=== PATIENT | female | born 1965 | race African-American/Black ===

== ENCOUNTER 2022-12-26 22:08 | Emergency (ER) | payer OTHER ==
[2022-12-26 22:15] VITALS: TEMP 97.1; BMI 33.3
[2022-12-26] MEDS ORDERED: FAMOTIDINE 20 MG/50 ML IVPB 20 MG/50 ML MG IVPB ONE ×2 (22:28→22:31)
[2022-12-26] MEDS ORDERED: ONDANSETRON 4 MG/2 ML VIAL IVPUSH ONE (22:28)
[2022-12-26] MEDS ORDERED: ACETAMINOPHEN 1000 MG/100 ML BAG IVPB ONE (22:28)
[2022-12-26] MEDS ORDERED: ONDANSETRON 4 MG/2 ML VIAL ONE (22:31)
[2022-12-26] MEDS ORDERED: ACETAMINOPHEN INJECTION 100 ML IVPB ONE (22:31)
[2022-12-26 22:45] LABS: BASO % 0.7 % (0-2.0); EOS % 2.1 % (0-4.5); HEMATOCRIT 38.6 % (32.4-45.2); HEMOGLOBIN 12.9 GM/dL (10.7-15.3); LYMPH % 32.8 % (8-40); MCH 30.4 pg (25.7-33.7); MCHC 33.4 g/dl (32.0-36.0); MEAN PLT VOLUME 7.3 fl (7.5-11.1); MONO % 6.4 % (3.8-10.2); PLATELET COUNT 319 10^3/uL (134-434); RBC 4.24 M/mm3 (3.60-5.2); RDW 13.1 % (11.6-15.6); WHITE BLOOD COUNT 11.7 K/mm3 (4.0-10.0)
[2022-12-26 22:52] LABS: INR 1.1 (0.83-1.09); PROTHROMBIN TIME (PATIENT) 12.8 SEC (9.7-13.0)
[2022-12-26 22:55] LABS: ACTIVATED PTT 28.6 SECONDS (25.2-36.5)
[2022-12-26] MEDS ORDERED: HYDROmorphone HCL CARPU-JECT 2 MG/1 ML DISP.SYRIN IVPUSH ONE (23:07)
[2022-12-26] MEDS ORDERED: HYDROmorphone HCl 2 MG/ML VIAL ONE (23:09)
[2022-12-26 23:15] LABS: BLOOD UREA NITROGEN 14.2 mg/dL (7-18); CALCIUM 9.5 mg/dL (8.5-10.1)
[2022-12-26 23:16] LABS: ALBUMIN 3.6 g/dl (3.4-5.0)
[2022-12-26 23:19] LABS: CREATININE 0.9 mg/dL (0.55-1.3)
[2022-12-26 23:20] LABS: TOT PROT 8.1 g/dl (6.4-8.2)
[2022-12-26 23:26] LABS: URINE APPEARANCE CLOUDY; URINE BILIRUBIN NEGATIVE (NEGATIVE); URINE COLOR YELLOW; URINE GLUCOSE (UA) NEGATIVE (NEGATIVE); URINE KETONE NEGATIVE (NEGATIVE); URINE LEUK ESTERASE NEGATIVE (NEGATIVE); URINE NITRITE NEGATIVE (NEGATIVE); URINE PROTEIN NEGATIVE (NEGATIVE); URINE UROBILINOGEN 0.2 mg/dL (0.2-1.0)
[2022-12-27 00:26] VITALS: BP 138/81; RESP 16
[2022-12-27 00:48] VITALS: PULSE 77
[2022-12-27] MEDS ORDERED: METOCLOPRAMIDE HCL INJECTION 10 MG/2 ML VIAL IVPUSH ONE (01:15)
[2022-12-27] MEDS ORDERED: METOCLOPRAMIDE HCL INJECTION 10 MG/2 ML VIAL ONE (01:23)
== END 2022-12-27 03:05 | disposition home or self-care (01) ==
LOC: JER 22:08
PROC: 3E0333Z Introduction of Anti-inflammatory into Peripheral Vein, Percutaneous Approach (ICD-10-PCS; principal; 2022-12-26)
PROC: 3E033GC Introduction of Other Therapeutic Substance into Peripheral Vein, Percutaneous Approach (ICD-10-PCS; 2022-12-26)
PROC: 3E033GC Introduction of Other Therapeutic Substance into Peripheral Vein, Percutaneous Approach (ICD-10-PCS; 2022-12-26)
PROC: 3E033GC Introduction of Other Therapeutic Substance into Peripheral Vein, Percutaneous Approach (ICD-10-PCS; 2022-12-26)
DX: N13.2 Hydronephrosis with renal and ureteral calculous obstruction (principal)
CPT/HCPCS: 36415; 74176-TC; 76705-TC; 80053; 81003; 83605; 83690; 85025; 85610; 85730; 86850; 86900; 86901; 87086; 93005; 93010; 96374; 96375; 96376; 99285-25

== ENCOUNTER 2025-01-23 16:28 | Inpatient (IN) | payer OTHER ==
[2025-01-23 18:10] LABS: ABSOLUTE IMMATURE GRANULOCYTES 0.03 x10^3/uL (0.0-0.031); BASOPHILS # 0.06 x10^3/uL (0.01-0.08); EOSINOPHIL % 0.7 % (0.7-5.8); EOSINOPHILS # 0.07 x10^3/uL (0.04-0.36); HEMOGLOBIN 12.1 g/dL (11.2-15.7); MCHC 32.7 g/dl (32.2-35.5); MEAN CELL VOLUME 93.7 fl (79.4-94.8); MEAN PLT VOLUME 9.5 fl (9.4-12.3); MONOCYTE # 0.69 x10^3/uL (0.24-0.86); MONOCYTE % 6.8 % (4.7-12.5); PLATELET COUNT 227 x10^3/uL (182-369); RDW 12.2 % (12.4-16.4)
[2025-01-23 18:14] LABS: EPI CELLS >36 /uL (0-25.1); HYALINE CASTS 24 /uL (0-3.1); PH,URINE 5.5 (5.0-8.0); URINE APPEARANCE CLOUDY; URINE BACTERIA 4661 /uL (0-1359); URINE BILIRUBIN 1+ (NEGATIVE); URINE COLOR DK YELLOW; URINE GLUCOSE (UA) NEGATIVE (NEGATIVE); URINE KETONE 1+ (NEGATIVE); URINE LEUK ESTERASE NEGATIVE (NEGATIVE); URINE NITRITE NEGATIVE (NEGATIVE); URINE PROTEIN 2+ (NEGATIVE); URINE RBC 13 /uL (0-23.9)
[2025-01-23] MEDS: ACETAMINOPHEN 1000 MG/100 ML BAG IVPB ONE (18:15)
[2025-01-23] MEDS ORDERED: ACETAMINOPHEN INJECTION 100 ML ONE (18:23)
[2025-01-23 18:24] LABS: INR 1.17 (0.83-1.09); PROTHROMBIN TIME (PATIENT) 12.8 SEC (9.7-13.0)
[2025-01-23 18:26] LABS: ACTIVATED PTT 26.7 SECONDS (25.2-36.5)
[2025-01-23 18:32] LABS: POTASSIUM 3.8 mmol/L (3.5-5.1)
[2025-01-23 18:34] LABS: CALCIUM 9.2 mg/dL (8.5-10.1)
[2025-01-23 18:35] LABS: ALBUMIN 3.6 g/dl (3.4-5.0); BLOOD UREA NITROGEN 11.1 mg/dL (7-18)
[2025-01-23 18:38] LABS: CREATININE 0.8 mg/dL (0.55-1.3)
[2025-01-23 18:39] LABS: BILIRUBIN,TOTAL 1.2 mg/dL (0.2-1)
[2025-01-23 18:40] LABS: TOT PROT 8.2 g/dl (6.4-8.2)
[2025-01-23] MEDS ORDERED: HEPARIN INFUSION - 25,000 UNITS/500 ML INFUS.BAG IVPB ONE (18:43)
[2025-01-23] MEDS ORDERED: HEPARIN NA (PORCINE) 5,000 UNITS/ML 1ML VIAL ONE (18:43)
[2025-01-23] MEDS: HEPARIN NA (PORCINE) 5,000 UNITS/ML 1ML VIAL IVPUSH ONE (18:51)
[2025-01-23] MEDS: HEPARIN INFUSION - 25,000 UNITS/500 ML INFUS.BAG IVPB SCH (18:51)
[2025-01-23 19:30] LABS: HIV INTERPRETATION NEGATIVE (NEGATIVE)
[2025-01-23 19:31] LABS: HCV DIAGNOSTIC IN-HOUSE W/RFLX NON-REACTIVE (NONREACTIVE)
[2025-01-23 21:58] LABS: URINE CRYSTALS NONE SEEN /hpf; URINE WBC 97.3 /uL (0-25.8)
[2025-01-23 23:23] VITALS: BMI 33.4
[2025-01-24] MEDS: APIXABAN 5 MG TABLET PO SCH (00:15)
[2025-01-24] MEDS: ACETAMINOPHEN 325 MG TABLET (FP) PO PRN (02:45)
[2025-01-24 08:25] LABS: ABSOLUTE IMMATURE GRANULOCYTES 0.03 x10^3/uL (0.0-0.031); BASOPHILS # 0.06 x10^3/uL (0.01-0.08); EOSINOPHIL % 2.2 % (0.7-5.8); EOSINOPHILS # 0.15 x10^3/uL (0.04-0.36); HEMATOCRIT 34.2 % (34.1-44.9); HEMOGLOBIN 11.2 g/dL (11.2-15.7); MCHC 32.7 g/dl (32.2-35.5); MEAN PLT VOLUME 9.6 fl (9.4-12.3); MONOCYTE # 0.71 x10^3/uL (0.24-0.86); MONOCYTE % 10.4 % (4.7-12.5); PLATELET COUNT 205 x10^3/uL (182-369); RDW 12.1 % (12.4-16.4)
[2025-01-24 08:36] LABS: POTASSIUM 3.7 mmol/L (3.5-5.1)
[2025-01-24 08:54] LABS: ALBUMIN 3.1 g/dl (3.4-5.0); BLOOD UREA NITROGEN 9.9 mg/dL (7-18)
[2025-01-24 08:55] LABS: BILIRUBIN,TOTAL 1.7 mg/dL (0.2-1); CALCIUM 8.9 mg/dL (8.5-10.1); TOT PROT 7.2 g/dl (6.4-8.2)
[2025-01-24 08:56] LABS: CREATININE 0.7 mg/dL (0.55-1.3); MAGNESIUM 2.1 mg/dL (1.8-2.4)
[2025-01-24 08:57] LABS: PHOSPHOROUS 3.1 mg/dL (2.5-4.9)
[2025-01-24 11:01] LABS: BILIRUBIN,DIRECT 0.3 mg/dL (0.0-0.2)
[2025-01-24] MEDS: MELATONIN 5 MG TABLETS PO PRN (21:49)
[2025-01-25] MEDS: ACETAMINOPHEN 1000 MG/100 ML BAG IVPB PRN
[2025-01-25] MEDS ORDERED: ACETAMINOPHEN 1000 MG/100 ML BAG IVPB PRN (05:45)
[2025-01-25 07:21] LABS: HEMATOCRIT 34.4 % (34.1-44.9); HEMOGLOBIN 11.3 g/dL (11.2-15.7); MCHC 32.8 g/dl (32.2-35.5); MEAN CELL VOLUME 94.8 fl (79.4-94.8); MEAN PLT VOLUME 9.3 fl (9.4-12.3); PLATELET COUNT 216 x10^3/uL (182-369); RDW 12.4 % (12.4-16.4)
[2025-01-25 07:44] LABS: POTASSIUM 4.2 mmol/L (3.5-5.1)
[2025-01-25 08:04] LABS: BLOOD UREA NITROGEN 9.9 mg/dL (7-18)
[2025-01-25 08:05] LABS: ALBUMIN 2.9 g/dl (3.4-5.0); CALCIUM 8.7 mg/dL (8.5-10.1)
[2025-01-25 08:06] LABS: BILIRUBIN,DIRECT 0.2 mg/dL (0.0-0.2)
[2025-01-25 08:07] LABS: CREATININE 0.7 mg/dL (0.55-1.3)
[2025-01-25 08:08] LABS: BILIRUBIN,TOTAL 1.1 mg/dL (0.2-1)
[2025-01-25] MEDS: traMADol HCL 50 MG TABLET PO PRN ×2 (09:03→15:14)
[2025-01-25] MEDS: PANTOPRAZOLE 40 MG TABLET PO ONE (18:59)
[2025-01-25] MEDS: PANTOPRAZOLE 40 MG TABLET PO SCH (19:00)
[2025-01-26] MEDS: ACETAMINOPHEN 1000 MG/100 ML BAG IVPB ONE (00:20)
[2025-01-26] MEDS ORDERED: DOCUSATE SODIUM 100 MG CAPSULE (FP) PO PRN ×2 (07:01→19:37)
[2025-01-26] MEDS: ONDANSETRON 4 MG/2 ML VIAL IVPUSH ONE (07:14)
[2025-01-26 08:09] LABS: HEMATOCRIT 35.2 % (34.1-44.9); HEMOGLOBIN 11.1 g/dL (11.2-15.7); MCHC 31.5 g/dl (32.2-35.5); MEAN CELL VOLUME 96.4 fl (79.4-94.8); MEAN PLT VOLUME 9.4 fl (9.4-12.3); PLATELET COUNT 253 x10^3/uL (182-369)
[2025-01-26 08:30] LABS: POTASSIUM 4.2 mmol/L (3.5-5.1)
[2025-01-26 08:35] LABS: ALBUMIN 2.9 g/dl (3.4-5.0)
[2025-01-26 08:40] LABS: CALCIUM 8.9 mg/dL (8.5-10.1)
[2025-01-26 08:43] LABS: BILIRUBIN,DIRECT 0.2 mg/dL (0.0-0.2)
[2025-01-26 08:44] LABS: CREATININE 0.7 mg/dL (0.55-1.3)
[2025-01-26 08:45] LABS: BILIRUBIN,TOTAL 1.2 mg/dL (0.2-1); TOT PROT 7.1 g/dl (6.4-8.2)
[2025-01-26] MEDS ORDERED: FENTANYL CITRATE/PF 50 MCG/ML VIAL ONE ×2 (15:14→15:43)
[2025-01-26] MEDS: FENTANYL CITRATE/PF 50 MCG/ML VIAL IVPUSH SCH (15:15)
[2025-01-26] MEDS ORDERED: FENTANYL CITRATE/PF 50 MCG/ML VIAL IVPUSH SCH (15:30)
[2025-01-26] MEDS: ALTEPLASE 50 MG IVPB ONE (16:00)
[2025-01-26] MEDS ORDERED: traMADol HCL 50 MG TABLET PO PRN (19:37)
[2025-01-26] MEDS ORDERED: MELATONIN 5 MG TABLETS PO PRN (19:37)
[2025-01-26] MEDS ORDERED: ACETAMINOPHEN 325 MG TABLET (FP) PO PRN (19:37)
[2025-01-26 20:04] LABS: HEMATOCRIT 35.7 % (34.1-44.9); HEMOGLOBIN 11.6 g/dL (11.2-15.7); MCHC 32.5 g/dl (32.2-35.5); MEAN CELL VOLUME 95.7 fl (79.4-94.8); MEAN PLT VOLUME 9.1 fl (9.4-12.3); PLATELET COUNT 241 x10^3/uL (182-369)
[2025-01-26 20:15] LABS: INR 1.62 (0.83-1.09); PROTHROMBIN TIME (PATIENT) 17.8 SEC (9.7-13.0)
[2025-01-26 20:16] LABS: ACTIVATED PTT 26.8 SECONDS (25.2-36.5)
[2025-01-26] MEDS: CHLORHEXIDINE GLUCONATE 4% CLEANSER FOR DECOLONIZATION TP SCH (21:26)
[2025-01-26] MEDS: MUPIROCIN 2% TOPICAL OINTMENT FOR DECOLONIZATION NS SCH (21:26)
[2025-01-26] MEDS ORDERED: APIXABAN 5 MG TABLET PO SCH (22:00)
[2025-01-27 02:32] LABS: HEMATOCRIT 32.9 % (34.1-44.9); HEMOGLOBIN 10.6 g/dL (11.2-15.7); MCHC 32.2 g/dl (32.2-35.5); MEAN CELL VOLUME 95.4 fl (79.4-94.8); MEAN PLT VOLUME 9.3 fl (9.4-12.3); PLATELET COUNT 230 x10^3/uL (182-369)
[2025-01-27 02:52] LABS: INR 1.41 (0.83-1.09); PROTHROMBIN TIME (PATIENT) 15.5 SEC (9.7-13.0)
[2025-01-27 02:54] LABS: ACTIVATED PTT 29.4 SECONDS (25.2-36.5)
[2025-01-27 06:47] LABS: ABSOLUTE IMMATURE GRANULOCYTES 0.03 x10^3/uL (0.0-0.031); BASOPHILS # 0.03 x10^3/uL (0.01-0.08); EOSINOPHIL % 1.4 % (0.7-5.8); EOSINOPHILS # 0.09 x10^3/uL (0.04-0.36); HEMATOCRIT 32.6 % (34.1-44.9); HEMOGLOBIN 10.5 g/dL (11.2-15.7); MCHC 32.2 g/dl (32.2-35.5); MEAN CELL VOLUME 95.6 fl (79.4-94.8); MEAN PLT VOLUME 9.3 fl (9.4-12.3); MONOCYTE # 0.73 x10^3/uL (0.24-0.86); MONOCYTE % 11.1 % (4.7-12.5); PLATELET COUNT 231 x10^3/uL (182-369); RDW 11.9 % (12.4-16.4)
[2025-01-27 07:49] LABS: INR 1.44 (0.83-1.09); PROTHROMBIN TIME (PATIENT) 15.8 SEC (9.7-13.0)
[2025-01-27 07:51] LABS: POTASSIUM 3.8 mmol/L (3.5-5.1)
[2025-01-27 07:51] LABS: ACTIVATED PTT 28.5 SECONDS (25.2-36.5)
[2025-01-27 07:54] LABS: ALBUMIN 2.7 g/dl (3.4-5.0); BLOOD UREA NITROGEN 8.7 mg/dL (7-18); CALCIUM 8.6 mg/dL (8.5-10.1)
[2025-01-27 07:57] LABS: BILIRUBIN,DIRECT 0.3 mg/dL (0.0-0.2); CREATININE 0.8 mg/dL (0.55-1.3)
[2025-01-27 07:59] LABS: BILIRUBIN,TOTAL 1.4 mg/dL (0.2-1); TOT PROT 6.8 g/dl (6.4-8.2)
[2025-01-27] MEDS: PANTOPRAZOLE 40 MG TABLET PO SCH (11:00)
[2025-01-27] MEDS ORDERED: MIDAZOLAM HCL 2 MG/2 ML SINGLE DOSE VIAL ONE (11:51)
[2025-01-27] MEDS ORDERED: FENTANYL CITRATE/PF 50 MCG/ML VIAL ONE (11:51)
[2025-01-27 14:44] LABS: HEMATOCRIT 34.2 % (34.1-44.9); MCHC 32.2 g/dl (32.2-35.5); MEAN CELL VOLUME 97.2 fl (79.4-94.8); MEAN PLT VOLUME 9.3 fl (9.4-12.3); PLATELET COUNT 214 x10^3/uL (182-369); RDW 11.9 % (12.4-16.4)
[2025-01-27 15:00] LABS: INR 1.37 (0.83-1.09); PROTHROMBIN TIME (PATIENT) 14.9 SEC (9.7-13.0)
[2025-01-27 15:02] LABS: ACTIVATED PTT 29.5 SECONDS (25.2-36.5)
[2025-01-27] MEDS: POLYETHYLENE GLYCOL (HEALTHYLAX) 3350 17 GM PACKET PO ONE (16:37)
[2025-01-27] MEDS: MIDAZOLAM HCL 2 MG/2 ML SINGLE DOSE VIAL IVPUSH ONE (19:31)
[2025-01-27] MEDS ORDERED: DOCUSATE SODIUM 100 MG CAPSULE (FP) PO PRN (20:05)
[2025-01-27] MEDS ORDERED: MELATONIN 5 MG TABLETS PO PRN (20:05)
[2025-01-27] MEDS ORDERED: ACETAMINOPHEN 325 MG TABLET (FP) PO PRN (20:05)
[2025-01-27] MEDS: ACETAMINOPHEN 1000 MG/100 ML BAG IVPB ONE (20:59)
[2025-01-27] MEDS: APIXABAN 5 MG TABLET PO SCH (21:00)
[2025-01-27] MEDS: POLYETHYLENE GLYCOL (HEALTHYLAX) 3350 17 GM PACKET PO SCH (21:30)
[2025-01-27 21:47] LABS: HEMATOCRIT 33.2 % (34.1-44.9); HEMOGLOBIN 10.6 g/dL (11.2-15.7); MCHC 31.9 g/dl (32.2-35.5); MEAN CELL VOLUME 96.5 fl (79.4-94.8); MEAN PLT VOLUME 9.4 fl (9.4-12.3); PLATELET COUNT 225 x10^3/uL (182-369); RDW 11.9 % (12.4-16.4)
[2025-01-27 21:57] LABS: INR 1.31 (0.83-1.09); PROTHROMBIN TIME (PATIENT) 14.3 SEC (9.7-13.0)
[2025-01-27 21:59] LABS: ACTIVATED PTT 30.9 SECONDS (25.2-36.5)
[2025-01-27] MEDS ORDERED: CHLORHEXIDINE GLUCONATE 4% CLEANSER FOR DECOLONIZATION TP SCH (22:00)
[2025-01-28] MEDS: FENTANYL CITRATE/PF 50 MCG/ML VIAL IVPUSH ONE (07:41)
[2025-01-28 08:37] LABS: POTASSIUM 4.2 mmol/L (3.5-5.1)
[2025-01-28 08:41] LABS: BLOOD UREA NITROGEN 10.9 mg/dL (7-18)
[2025-01-28 08:42] LABS: ALBUMIN 2.8 g/dl (3.4-5.0); CALCIUM 8.9 mg/dL (8.5-10.1); MAGNESIUM 2.1 mg/dL (1.8-2.4)
[2025-01-28 08:45] LABS: CREATININE 0.7 mg/dL (0.55-1.3)
[2025-01-28 08:46] LABS: BILIRUBIN,TOTAL 1.5 mg/dL (0.2-1); TOT PROT 6.8 g/dl (6.4-8.2)
[2025-01-28 09:15] LABS: ABSOLUTE IMMATURE GRANULOCYTES 0.01 x10^3/uL (0.0-0.031); BASOPHILS # 0.05 x10^3/uL (0.01-0.08); EOSINOPHIL % 2.2 % (0.7-5.8); EOSINOPHILS # 0.14 x10^3/uL (0.04-0.36); HEMATOCRIT 35.5 % (34.1-44.9); HEMOGLOBIN 11.2 g/dL (11.2-15.7); MCHC 31.5 g/dl (32.2-35.5); MEAN CELL VOLUME 96.7 fl (79.4-94.8); MEAN PLT VOLUME 9.5 fl (9.4-12.3); MONOCYTE # 0.53 x10^3/uL (0.24-0.86); MONOCYTE % 8.4 % (4.7-12.5); PLATELET COUNT 245 x10^3/uL (182-369); RDW 11.9 % (12.4-16.4)
[2025-01-28] MEDS: PANTOPRAZOLE 40 MG TABLET PO SCH (09:36)
[2025-01-28 09:46] VITALS: BP 132/63; PULSE 93; RESP 18; TEMP 98.1
== END 2025-01-28 14:58 | disposition home or self-care (01) | DRG 181 ==
LOC: JER 16:28 → JERBED 19:08 → INTOOBSV 19:08 → J7W 22:54 → OBSVTOIN 01-25 14:58 → JICU 01-26 16:45 → J5S 01-27 19:54
PROVIDERS: ADMIT Internal Medicine; ATTEND Internal Medicine
PROC: 04FD3Z0 Fragmentation of Left Common Iliac Artery, Percutaneous Approach, Ultrasonic (ICD-10-PCS; principal; 2025-01-26)
PROC: 04FL3Z0 Fragmentation of Left Femoral Artery, Percutaneous Approach, Ultrasonic (ICD-10-PCS; 2025-01-26)
PROC: 3E03317 Introduction of Other Thrombolytic into Peripheral Vein, Percutaneous Approach (ICD-10-PCS; 2025-01-26)
PROC: 3E03317 Introduction of Other Thrombolytic into Peripheral Vein, Percutaneous Approach (ICD-10-PCS; 2025-01-27)
PROC: B50CYZZ Plain Radiography of Left Lower Extremity Veins using Other Contrast (ICD-10-PCS; 2025-01-27)
DX: I82.422 Acute embolism and thrombosis of left iliac vein (principal); I82.412 Acute embolism and thrombosis of left femoral vein; D72.829 Elevated white blood cell count, unspecified
CPT/HCPCS: 36415; 37187; 37212; 37248; 71046-TC-FY; 75820-TC-FY; 75893-TC-FY; 76998-TC; 80053; 81003; 82248; 82962; 83615; 83735; 84100; 84484; 85025; 85027; 85384; 85610; 85730; 86803; 87389; 93005; 93010; 93971-TC; 97116-GP; 97161-GP; 99285-25; C1725; C1757; C1769; C1887; C1894; G0378; J0131; J1644; J2997